=== PATIENT | male | born 1965 | race Hispanic/Latino ===

== ENCOUNTER → 2016-10-18 | Outpatient (CLI) | payer OTHER ==
--- NOTE | 2016-10-18 10:54 | REP ---
RIGHT KNEE, FIVE VIEWS: HISTORY: Pain. There is no acute fracture or dislocation. There is narrowing of the joint spaces. Osteophytes are present on the tibia, femur, and patella. Chondrocalcinosis is present. IMPRESSION: Degenerative change as described above. Signed by Keith Donnelly MD 10/18/2016 10:59 A
== END ==
LOC: M RAD 09:17
PROVIDERS: ATTEND Surgery
DX: M17.11 Unilateral primary osteoarthritis, right knee (principal)